=== PATIENT | female | born 1950 | race Caucasian/White ===

== ENCOUNTER 2018-01-23 12:43 | Emergency (ER) | payer SELFPAY | END 2018-01-23 15:34 | disposition home or self-care (01) | LOC: FTE 12:43 | DX: S20.20XA Contusion of thorax, unspecified, initial encounter (principal); M62.838 Other muscle spasm; R07.9 Chest pain, unspecified; V49.40XA Driver injured in collision with unspecified motor vehicles in traffic accident, initial encounter | CPT/HCPCS: 71046; 93005; 99284-25 ==